=== PATIENT | male | born 1985 | race Caucasian/White ===

== ENCOUNTER 2020-04-06 02:36 | Emergency (ER) | payer BC, SELFPAY ==
[2020-04-06] VITALS (10 sets, daily range): BP systolic 129–134; BP diastolic 83–88; PULSE 66–93; RESP 12–20; TEMP 36.4; O2SAT 96–100
--- NOTE | ~2020-04-06 | XR_ITS ---
EXAMINATION: XR lumbar spine 2-3V DATE: 04/06/2020 04:50 INDICATION: Back pain post fall TECHNIQUE: Anteroposterior and lateral views of the lumbar spine, and cone-down lateral view of the l umbosacral junction were obtained. COMPARISON: None. FINDINGS: Minimal lower lumbar levocurvature. 1-2 mm left lateral and retrolisthesis L4 on L5 with mild associa urmila disc height loss. Vertebral body heights are normal. No evident fractures. Small lower lumbar yudi tral canal with short pedicles at L4 and L5. Remaining disc heights are normal. Bilateral hip and sac roiliac joint spaces appear normal. Visualized bowel gas pattern is unremarkable. IMPRESSION: 1. No acute osseous abnormality. 2. Likely developmentally small central canal at the lower lumbar spine with mild spondylosis at L4-L 5. Reviewed, dictated and finalized at location A. IMPRESSION: 1. No acute osseous abnormality. 2. Likely developmentally small central canal at the lower lumbar spine with mi ld spondylosis at L4-L5.
--- NOTE | ~2020-04-06 | XR_ITS ---
XR thoracic spine 3V DATE: 04/06/2020 04:50 INDICATION: Back pain TECHNIQUE: AP, lateral, swimmer views COMPARISON: None FINDINGS: There is mild loss of height and anterior wedging of T8 consistent with old mild compressio n fracture deformity. No other fracture or dislocation. The thoracic pedicles are intact. No paraspinal soft tissue thicken ing. IMPRESSION: Mild chronic anterior wedge compression fracture deformity of T8 Reviewed, dictated and finalized at location D.
--- NOTE | ~2020-04-06 | CT_ITS ---
EXAMINATION: CT cervical spine wo con DATE: 04/06/2020 03:31 INDICATION: Neck pain TECHNIQUE: Computed tomography (CT) of the cervical spine was performed without intravenous contrast. The dose-length product (DLP) was 444.35 mGy-cm. Automated exposure control and iterative reconstruc tion technique were employed. COMPARISON: None FINDINGS: There is no fracture, dislocation, or subluxation. The vertebral body heights, alignment, a nd intervertebral disc spaces are normal. The odontoid is intact. A well-corticated triangular hetero topic ossification is seen near the anterior aspect of the left C5-6 facet joint which has the appear ance of an old fracture. The prevertebral soft tissues are normal. IMPRESSION: 1. No acute osseous abnormality. Reviewed, dictated and finalized at location A.
--- NOTE | ~2020-04-06 | CT_ITS ---
EXAMINATION: CT brain wo con INDICATION: Head injury COMPARISON: None TECHNIQUE: Standard unenhanced head CT. The dose-length product (DLP) was 681.00 mGy-cm. The mA was a djusted according to patient size. Iterative reconstruction technique was employed. FINDINGS: There is no intracranial hemorrhage, acute infarction, or abnormal mass lesion. The ventric les are normal. There is no abnormal mass effect or midline shift. The godinez-white matter differentiat ion is normal. The basal cisterns are patent. The orbits are normal. The paranasal sinuses, mastoids and calvarium are normal. IMPRESSION: 1. No acute intracranial abnormality. Reviewed, dictated and finalized at location A.
--- NOTE | 2020-04-06 02:46 | ECG_ITS ---
Measurements Intervals [place] Rate: 77 P: 56 OR: 150 QRS: 73 QRSD: 91 T: 46 QT: 354 QTc: 401 Interpretive Statements SINUS RHYTHM BASELINE ARTIFACT- I, III, AVL, V1 NORMAL ECG Electronically Signed On 04-06-2020 12:49:19 CDT by Tonio Renteria D.O.
--- NOTE | 2020-04-06 02:50 | PC.NURSE ---
When this nurse informs patient on interventions that need to be performed, patient states I refuse, your not drawing blood or an IV. This nurse informs patient that blood draw and IV and other tests are needed to figure out what is going on with patient. Patient then states I'm refusing that, my name is Samara Atkinson, its and its summer outside and Lonnie is the president. Your not sticking an IV in my arm. This nurse informs ERP Dr. Alicea. Patient placed in C-Collar d/t reporting neck and back pain.
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
--- NOTE | 2020-04-06 03:21 | PC.NURSE ---
Patient being taken to CT.
[2020-04-06 03:22] LABS: Basophils Percent Auto 0.5 % (0.2-1.2); Eosinophils Absolute Auto 0.1 K/mm3 (0-0.3); Eosinophils Percent Auto 1.6 % (0-4.4); Hematocrit 47.1 % (42.0-52.0); Hemoglobin 17.1 g/dL (14.0-18.0); Immature Granulocyte Absolute 0.02 K/mm3 (0.00-0.031); Immature Granulocyte Percent A 0.2 % (0-0.5); Lymphocytes Absolute Auto 1.69 K/mm3 (0.9-3.2); Lymphocytes Percent Auto 20.8 % (18.3-44.2); Mean Corpuscular HGB Conc 36.3 g/dl (32-36); Mean Corpuscular Hemoglobin 31.9 pg (26-34); Mean Corpuscular Volume 87.9 fl (80-100); Mean Platelet Volume 9.7 fl (7.4-10.4); Monocytes Absolute Auto 0.9 K/mm3 (0.1-0.6); Monocytes Percent Auto 10.4 % (2.6-8.5); Neutrophils Absolute Auto 5.4 K/mm3 (1.3-6.7); Neutrophils Percent Auto 66.5 % (45.5-73.1); Platelet Count Result 216 k/mm3 (150-375); Red Blood Count 5.36 M/mm3 (4.6-6.20); Red Cell Distribution Width 12.1 % (11.5-14.5); White Blood Count 8.1 K/mm3 (4.5-10.0)
--- NOTE | 2020-04-06 03:22 | PC.NURSE ---
This nurse contacted patient's mother upon request at [phone]. The person who answered stated was wrong number.
[2020-04-06 03:34] LABS: Ethanol < 10 mg/dL (<10)
[2020-04-06 03:35] LABS: Alanine Aminotransferase 22 U/L (4-50); Albumin Level 4.6 g/dL (3.5-5.1); Alkaline Phosphatase 71 U/L (38-126); Aspartate Amino Transferase 24 U/L (17-59); Bilirubin,Total 0.7 mg/dL (0.2-1.3); Blood Urea Nitrogen 17 mg/dL (9-20); Calcium 9.5 mg/dL (8.4-10.2); Carbon Dioxide 29 mmol/L (22-30); Chloride 100 mmol/L (98-107); Estimated Glomerular Filt Rate > 60; Glucose 107 mg/dL (75-110); Potassium 4.1 mmol/L (3.4-5.0); Sodium 134 mmol/L (137-145)
[2020-04-06] MEDS: KETOROLAC 30 MG/ML VIAL (*BKC) IV PUSH (04:23)
== END 2020-04-06 05:33 | disposition home or self-care (01) ==
PROVIDERS: Emergency Provider Emergency Medicine
DX: S00.93XA Contusion of unspecified part of head, initial encounter (principal); S16.1XXA Strain of muscle, fascia and tendon at neck level, initial encounter; S46.212A Strain of muscle, fascia and tendon of other parts of biceps, left arm, initial encounter; S39.92XA Unspecified injury of lower back, initial encounter; S29.9XXA Unspecified injury of thorax, initial encounter; Z87.820 Personal history of traumatic brain injury; Y35.813A Legal intervention involving manhandling, suspect injured, initial encounter
CPT/HCPCS: 36415; 70450; 72072; 72100; 72125; 80053; 80307; 85025; 93005; 96374; 99284; J1885; L0140